=== PATIENT | male | born 1945 | race Two or more races ===

== ENCOUNTER 2019-11-21 15:05 | Inpatient (IN) | payer OTHER ==
[~2019-11-21] VITALS: Ht 182.9 cm; Wt 131.0 kg
[2019-11-21] MEDS ORDERED: SODIUM CHLORIDE 0.9% 500 ML IVB ONE (15:50)
[2019-11-21] MEDS ORDERED: ACETAMINOPHEN 325 MG TAB PO ONE ×2 (16:26→17:00)
[2019-11-21 17:15] LABS: Basophils # (auto) 0 10 ^3/uL (0-0.2); Basophils % (auto) 0.3 % (0.0-2.0); Eosinophils # (auto) 0 10 ^3/uL (0-0.8); Eosinophils % (auto) 0.3 % (0.0-7.0); Hematocrit 39.9 % (41.0-53.0); Hemoglobin 13.1 g/dL (13.5-17.5); Lymphocytes # (auto) 0.7 10 ^3/uL (0.4-5.4); Lymphocytes % (auto) 8.8 % (10.0-50.0); Mean Corpuscular Hemoglobin 29.5 pg (28.0-32.0); Mean Corpuscular Hgb Conc. 32.8 g/dL (32.0-36.0); Mean Corpuscular Volume 89.9 fL (80.0-100.0); Monocytes # (auto) 0.3 10 ^3/uL (0-1.3); Neutrophils # (auto) 7.3 10 ^3/uL (1.6-8.6); Neutrophils % (auto) 86.6 % (37.0-80.0); Platelet Count (auto) 179 10^3/uL (140-450); Red Blood Cells 4.44 10^6/uL (4.5-5.90); Red Cell Distribution Width 13.9 % (11.8-14.3); White Blood Cell 8.4 10^3/uL (4.4-10.8)
[2019-11-21 17:27] LABS: Alanine Aminotransferase 40 U/L (16-61); Albumin 2.6 g/dL (3.4-5.0); Anion Gap 8 (5-15); Aspartate Aminotransferase 55 U/L (15-37); BUN/Creatinine Ratio 14.4; Blood Alcohol < 3.0 mg/dL (0-5); Blood Urea Nitrogen 32 mg/dL (7-18); Calcium 7.9 mg/dL (8.5-10.1); Carbon Dioxide 23 mmol/L (21-32); Chloride 106 mmol/L (98-107); GFR African American 37 mL/min; GFR Non-African American 31 mL/min; Glucose 69 mg/dL (74-106); Magnesium 1.9 mg/dL (1.6-2.6); Potassium 3.9 mmol/L (3.5-5.1); Sodium 137 mmol/L (136-145)
[2019-11-21 17:38] LABS: Alkaline Phosphatase 53 U/L (45-117); Bilirubin, Total 0.4 mg/dL (0.2-1.0); Lactate Dehydrogenase 414 U/L (87-241); Total Protein 6.6 g/dL (6.4-8.2)
[2019-11-21] MEDS ORDERED: AZITHROMYCIN 500MG/ 250ML 250 ML IV ONE (18:30)
[2019-11-21] MEDS ORDERED: MORPHINE SULF INJ 2 MG/ML SYRINGE 1ML IV PRN ×3 (18:30→21:45)
[2019-11-21] MEDS ORDERED: ZINC SULFATE 220mg CAP or TAB PO ONE (18:30)
[2019-11-21] MEDS ORDERED: ASCORBIC ACID 500 MG TAB PO ONE (18:30)
[2019-11-21] MEDS ORDERED: NITROGLYCERIN 0.4 MG SL TAB SL PRN ×2 (18:30→21:45)
[2019-11-21 20:19] LABS: Urine Bacteria NONE SEEN /hpf (None Seen); Urine Blood Negative /uL (Negative); Urine Hyaline Cast FEW /lpf (0 - 2); Urine Specific Gravity 1.027 (1.001-1.035); Urine WBC 1 /hpf (0 - 3)
[2019-11-21] MEDS ORDERED: ACETAMINOPHEN 500 MG TAB PO PRN (21:45)
[2019-11-21] MEDS ORDERED: HYDROcodone-ACET 5/325MG TAB PO PRN (21:45)
[2019-11-21] MEDS ORDERED: LORazepam 0.5 MG TAB PO PRN (21:45)
[2019-11-21] MEDS ORDERED: DOCUSATE SOD 100 MG CAP PO PRN (21:45)
[2019-11-21] MEDS ORDERED: ACETAMINOPHEN 325 MG TAB PO PRN (21:45)
[2019-11-21] MEDS: MONTELUKAST SODIUM 10 MG TAB PO SCH (22:00)
[2019-11-21] MEDS: InsuLIN REG 1unit/0.01ml Soln (100units/ml) SC SCH (22:00)
[2019-11-21] MEDS: DOXYCYCLINE 100MG/250ML 250 ML IV SCH (22:00)
[2019-11-21] MEDS: ACCU-CHEK COMFORT CURVE STRIP VI SCH (22:00)
[2019-11-21] MEDS ORDERED: DEXTROSE (50%) 50ML SYRG IV PRN (22:00)
[2019-11-21] MEDS: ALBUTEROL SULF HFA 90MCG INH 200DOSE IN SCH (22:00)
[2019-11-21] MEDS ORDERED: FAMOTIDINE (10MG/ML) 2ML VL IV ONE (22:00)
[2019-11-21] MEDS: CARVEDILOL 3.125 MG TAB PO SCH (22:57)
[2019-11-21] MEDS: ATORVASTATIN 20 MG TAB PO SCH (22:57)
[2019-11-21] MEDS: HEPARIN SODIUM (PORCINE) 5000 UNITS/ML 1ML VIAL SC SCH (22:58)
[2019-11-22] VITALS (8 sets, daily range): BP systolic 121–139; BP diastolic 49–71
[2019-11-22] MEDS ORDERED: BENZ100C97 PO (04:30)
[2019-11-22] MEDS ORDERED: FAMO20TA10 PO (04:30)
[2019-11-22] MEDS ORDERED: FLUT250M2 IN (04:30)
[2019-11-22] MEDS ORDERED: CEPH500C PO (04:30)
[2019-11-22] MEDS ORDERED: METO25TA5 PO (04:35)
[2019-11-22] MEDS ORDERED: ASPI81CH43 GT (04:45)
[2019-11-22] MEDS ORDERED: AMIO200T33 PO (04:45)
[2019-11-22] MEDS ORDERED: MONT10TA34 PO (04:45)
[2019-11-22] MEDS ORDERED: FURO20TA3 PO (04:45)
[2019-11-22] MEDS ORDERED: HYDR-4833 PO (04:45)
[2019-11-22] MEDS ORDERED: LOSA-69 PO (04:45)
[2019-11-22] MEDS ORDERED: TAM04C PO (04:45)
[2019-11-22] MEDS ORDERED: PANT1INJ3 PO (04:45)
[2019-11-22] MEDS ORDERED: SIMV-13 PO (04:45)
[2019-11-22] MEDS ORDERED: FUROSEMIDE 20 MG/2 ML VIAL IV SCH (06:00)
[2019-11-22] MEDS: HEPARIN SODIUM (PORCINE) 5000 UNITS/ML 1ML VIAL SC SCH ×3 (06:37→22:22)
[2019-11-22] MEDS: ACCU-CHEK COMFORT CURVE STRIP VI SCH ×4 (06:44→22:37)
[2019-11-22] MEDS: InsuLIN REG 1unit/0.01ml Soln (100units/ml) SC SCH ×4 (06:45→22:38)
[2019-11-22] MEDS: ALBUTEROL SULF HFA 90MCG INH 200DOSE IN SCH ×3 (06:54→21:15)
[2019-11-22 09:04] LABS: Basophils # (auto) 0 10 ^3/uL (0-0.2); Basophils % (auto) 0.2 % (0.0-2.0); Eosinophils # (auto) 0 10 ^3/uL (0-0.8); Eosinophils % (auto) 0.1 % (0.0-7.0); Hematocrit 43.8 % (41.0-53.0); Hemoglobin 14.3 g/dL (13.5-17.5); Lymphocytes # (auto) 1.8 10 ^3/uL (0.4-5.4); Lymphocytes % (auto) 15.5 % (10.0-50.0); Mean Corpuscular Hemoglobin 29.9 pg (28.0-32.0); Mean Corpuscular Hgb Conc. 32.7 g/dL (32.0-36.0); Mean Corpuscular Volume 91.6 fL (80.0-100.0); Monocytes # (auto) 0.5 10 ^3/uL (0-1.3); Monocytes % (auto) 4.4 % (0.0-12.0); Neutrophils # (auto) 9.3 10 ^3/uL (1.6-8.6); Neutrophils % (auto) 79.8 % (37.0-80.0); Nucleated Red Blood Cells % 0.1 %; Platelet Count (auto) 224 10^3/uL (140-450); Red Blood Cells 4.78 10^6/uL (4.5-5.90); Red Cell Distribution Width 14.1 % (11.8-14.3); White Blood Cell 11.6 10^3/uL (4.4-10.8)
[2019-11-22 09:26] LABS: INR 1.08 (0.9-1.15); Partial Thromboplastin Time 30.8 sec (23.0-31.2)
[2019-11-22 09:34] LABS: Albumin 2.7 g/dL (3.4-5.0); BUN/Creatinine Ratio 14.3; Bilirubin, Total 0.5 mg/dL (0.2-1.0); Calcium 8.1 mg/dL (8.5-10.1); Magnesium 1.8 mg/dL (1.6-2.6); Phosphorus 3.8 mg/dL (2.5-4.90)
[2019-11-22 10:00] LABS: CRP High Sensitivity 12.9 mg/dL (< 0.3)
[2019-11-22] MEDS ORDERED: FAMOTIDINE (10MG/ML) 2ML VL IV SCH (10:00)
[2019-11-22] MEDS ORDERED: LOSARTAN POTASSIUM 25 MG TAB PO SCH (10:00)
[2019-11-22] MEDS: CARVEDILOL 3.125 MG TAB PO SCH ×2 (10:01→22:21)
[2019-11-22] MEDS: ASPirin 81 mg TAB PO SCH (10:02)
[2019-11-22] MEDS: DOXYCYCLINE 100MG/250ML 250 ML IV SCH ×2 (10:02→22:20)
[2019-11-22] MEDS: DexAMETHasone SOD PHOS 10MG/1ML VIAL INJ IV SCH (10:02)
[2019-11-22] MEDS: AMIODARONE HCL 200 MG TAB PO SCH (10:03)
[2019-11-22] MEDS: ASCORBIC ACID 1,000 MG TAB PO SCH (10:03)
[2019-11-22] MEDS: ZINC SULFATE 220mg CAP or TAB PO SCH (10:03)
[2019-11-22] MEDS: CHOLECALCIFEROL (VITD3) 2,000 UNIT CAP PO SCH (10:04)
[2019-11-22] MEDS ORDERED: ACETAMINOPHEN 650 mg PER 20 mL UD PO ONE (17:30)
[2019-11-22] MEDS ORDERED: methylPREDNISolone SOD SUCC 40 MG/ML VL IV ONE (17:30)
[2019-11-22] MEDS ORDERED: diphenhdrAMINE HCL 50 MG/1 ML VL IV ONE (17:30)
[2019-11-22] MEDS ORDERED: TOCILIZUMAB 400 MG in SODIUM CHL 0.9% 80 ML IV ONE (18:00)
[2019-11-22] MEDS: TAMSULOSIN HYDROCHLORIDE 0.4 MG CAP PO SCH (18:40)
[2019-11-22] MEDS: FUROSEMIDE 40 MG/4 ML VIAL IV SCH (18:40)
[2019-11-22] MEDS ORDERED: REMDESIVIR 200 MG in NS 210ml LOADING DOSE ADULT IV ONE (20:00)
[2019-11-22] MEDS: ATORVASTATIN 20 MG TAB PO SCH (22:21)
[2019-11-22] MEDS: MONTELUKAST SODIUM 10 MG TAB PO SCH (22:21)
[2019-11-23] VITALS (9 sets, daily range): BP systolic 110–145; BP diastolic 55–87
[2019-11-23] MEDS: FUROSEMIDE 40 MG/4 ML VIAL IV SCH (05:42)
[2019-11-23] MEDS: HEPARIN SODIUM (PORCINE) 5000 UNITS/ML 1ML VIAL SC SCH ×3 (05:43→21:37)
[2019-11-23] MEDS: InsuLIN REG 1unit/0.01ml Soln (100units/ml) SC SCH ×4 (06:47→21:37)
[2019-11-23] MEDS: ACCU-CHEK COMFORT CURVE STRIP VI SCH ×4 (06:47→21:24)
[2019-11-23] MEDS: ALBUTEROL SULF HFA 90MCG INH 200DOSE IN SCH ×3 (07:05→21:48)
[2019-11-23] MEDS ORDERED: diphenhdrAMINE HCL 50 MG/1 ML VL IV ONE (08:00)
[2019-11-23] MEDS ORDERED: methylPREDNISolone SOD SUCC 40 MG/ML VL IV ONE (08:00)
[2019-11-23] MEDS ORDERED: ACETAMINOPHEN 650 mg PER 20 mL UD PO ONE (08:00)
[2019-11-23] MEDS ORDERED: TOCILIZUMAB 400 MG in SODIUM CHL 0.9% 80 ML IV ONE (08:30)
[2019-11-23] MEDS: DOXYCYCLINE 100MG/250ML 250 ML IV SCH ×2 (09:41→21:29)
[2019-11-23] MEDS: ZINC SULFATE 220mg CAP or TAB PO SCH (09:41)
[2019-11-23] MEDS: ASPirin 81 mg TAB PO SCH (09:41)
[2019-11-23] MEDS: CHOLECALCIFEROL (VITD3) 2,000 UNIT CAP PO SCH (09:42)
[2019-11-23] MEDS: ASCORBIC ACID 1,000 MG TAB PO SCH (09:42)
[2019-11-23] MEDS: CARVEDILOL 3.125 MG TAB PO SCH ×2 (09:42→21:36)
[2019-11-23] MEDS: AMIODARONE HCL 200 MG TAB PO SCH (09:42)
[2019-11-23] MEDS: DexAMETHasone SOD PHOS 10MG/1ML VIAL INJ IV SCH (09:42)
[2019-11-23] MEDS: REMDESIVIR 100mg in NS 230ml DAILYx4DAYS (NO VENT) IV SCH (17:10)
[2019-11-23] MEDS: TAMSULOSIN HYDROCHLORIDE 0.4 MG CAP PO SCH (17:52)
[2019-11-23] MEDS: MONTELUKAST SODIUM 10 MG TAB PO SCH (21:25)
[2019-11-23] MEDS: ATORVASTATIN 20 MG TAB PO SCH (21:25)
[2019-11-24 05:00] VITALS: BP 150/68
[2019-11-24] MEDS ORDERED: HEPARIN SODIUM (PORCINE) 5000 UNITS/ML 1ML VIAL ONE (05:52)
[2019-11-24] MEDS: HEPARIN SODIUM (PORCINE) 5000 UNITS/ML 1ML VIAL SC SCH (05:57)
[2019-11-24] MEDS: ACCU-CHEK COMFORT CURVE STRIP VI SCH ×4 (05:58→21:05)
[2019-11-24] MEDS: InsuLIN REG 1unit/0.01ml Soln (100units/ml) SC SCH ×4 (05:58→21:06)
[2019-11-24] MEDS: ALBUTEROL SULF HFA 90MCG INH 200DOSE IN SCH ×3 (05:59→22:04)
[2019-11-24 07:32] LABS: Potassium 4.1 mmol/L (3.5-5.1)
[2019-11-24 07:41] LABS: Albumin 2.6 g/dL (3.4-5.0); BUN/Creatinine Ratio 19.4; Bilirubin, Total 0.5 mg/dL (0.2-1.0); Calcium 8.6 mg/dL (8.5-10.1); Total Protein 7.3 g/dL (6.4-8.2)
[2019-11-24 08:59] VITALS: BP 107/60
[2019-11-24] MEDS: DOXYCYCLINE 100MG/250ML 250 ML IV SCH ×2 (09:00→21:04)
[2019-11-24] MEDS: DexAMETHasone SOD PHOS 10MG/1ML VIAL INJ IV SCH (09:00)
[2019-11-24] MEDS: FUROSEMIDE 40 MG/4 ML VIAL IV SCH (09:00)
[2019-11-24] MEDS: AMIODARONE HCL 200 MG TAB PO SCH (09:01)
[2019-11-24] MEDS: ZINC SULFATE 220mg CAP or TAB PO SCH (09:01)
[2019-11-24] MEDS: ASPirin 81 mg TAB PO SCH (09:01)
[2019-11-24] MEDS: ASCORBIC ACID 1,000 MG TAB PO SCH (09:02)
[2019-11-24] MEDS: CHOLECALCIFEROL (VITD3) 2,000 UNIT CAP PO SCH (09:02)
[2019-11-24] MEDS: CARVEDILOL 3.125 MG TAB PO SCH ×2 (09:02→21:04)
[2019-11-24 12:50] VITALS: BP 117/65
[2019-11-24 16:17] VITALS: BP 138/78
[2019-11-24] MEDS: REMDESIVIR 100mg in NS 230ml DAILYx4DAYS (NO VENT) IV SCH (17:05)
[2019-11-24] MEDS: TAMSULOSIN HYDROCHLORIDE 0.4 MG CAP PO SCH (17:17)
[2019-11-24 20:00] VITALS: BP 118/68
[2019-11-24] MEDS ORDERED: guaiFENesin-DM 100/10mg/5ml SYR PO PRN (20:45)
[2019-11-24] MEDS: ATORVASTATIN 20 MG TAB PO SCH (21:05)
[2019-11-24] MEDS: MONTELUKAST SODIUM 10 MG TAB PO SCH (21:05)
[2019-11-24] MEDS: ENOXAPARIN SOD 150 MG/1 ML SYRINGE SC SCH (21:05)
[2019-11-24 22:00] VITALS: BP 118/68
[2019-11-25] VITALS (7 sets, daily range): BP systolic 93–153; BP diastolic 42–68
[2019-11-25] MEDS: ACCU-CHEK COMFORT CURVE STRIP VI SCH ×4 (06:03→22:49)
[2019-11-25] MEDS: InsuLIN REG 1unit/0.01ml Soln (100units/ml) SC SCH ×4 (06:04→22:48)
[2019-11-25 06:24] LABS: Basophils # (auto) 0 10 ^3/uL (0-0.2); Basophils % (auto) 0.1 % (0.0-2.0); Eosinophils # (auto) 0 10 ^3/uL (0-0.8); Hematocrit 42.4 % (41.0-53.0); Lymphocytes # (auto) 0.7 10 ^3/uL (0.4-5.4); Lymphocytes % (auto) 6.1 % (10.0-50.0); Mean Corpuscular Hemoglobin 29.3 pg (28.0-32.0); Mean Corpuscular Hgb Conc. 32.9 g/dL (32.0-36.0); Mean Corpuscular Volume 88.8 fL (80.0-100.0); Monocytes # (auto) 0.6 10 ^3/uL (0-1.3); Monocytes % (auto) 5.5 % (0.0-12.0); Neutrophils % (auto) 88.3 % (37.0-80.0); Nucleated Red Blood Cells % 0.1 %; Platelet Count (auto) 279 10^3/uL (140-450); Red Blood Cells 4.77 10^6/uL (4.5-5.90); White Blood Cell 11.4 10^3/uL (4.4-10.8)
[2019-11-25] MEDS: ALBUTEROL SULF HFA 90MCG INH 200DOSE IN SCH ×3 (06:25→21:58)
[2019-11-25 06:42] LABS: Albumin 2.5 g/dL (3.4-5.0); BUN/Creatinine Ratio 23.5; Bilirubin, Total 0.6 mg/dL (0.2-1.0); Calcium 8.1 mg/dL (8.5-10.1); Total Protein 6.6 g/dL (6.4-8.2)
[2019-11-25] MEDS: DexAMETHasone SOD PHOS 10MG/1ML VIAL INJ IV SCH (09:39)
[2019-11-25] MEDS: FUROSEMIDE 40 MG/4 ML VIAL IV SCH (09:41)
[2019-11-25] MEDS: ASPirin 81 mg TAB PO SCH (09:42)
[2019-11-25] MEDS: ZINC SULFATE 220mg CAP or TAB PO SCH (09:42)
[2019-11-25] MEDS: DOXYCYCLINE 100MG/250ML 250 ML IV SCH ×2 (09:42→22:46)
[2019-11-25] MEDS: AMIODARONE HCL 200 MG TAB PO SCH (09:43)
[2019-11-25] MEDS: CARVEDILOL 3.125 MG TAB PO SCH ×2 (09:43→22:46)
[2019-11-25] MEDS: ASCORBIC ACID 1,000 MG TAB PO SCH (09:44)
[2019-11-25] MEDS: CHOLECALCIFEROL (VITD3) 2,000 UNIT CAP PO SCH (09:44)
[2019-11-25] MEDS: ENOXAPARIN SOD 150 MG/1 ML SYRINGE SC SCH ×2 (09:44→22:49)
[2019-11-25] MEDS ORDERED: INSULIN LANTUS (GLARGINE) 1 /0.01ml (100units/ml) SC ONE (13:30)
[2019-11-25] MEDS: REMDESIVIR 100mg in NS 230ml DAILYx4DAYS (NO VENT) IV SCH (16:45)
[2019-11-25] MEDS: TAMSULOSIN HYDROCHLORIDE 0.4 MG CAP PO SCH (16:53)
[2019-11-25] MEDS: ATORVASTATIN 20 MG TAB PO SCH (22:46)
[2019-11-25] MEDS: MONTELUKAST SODIUM 10 MG TAB PO SCH (22:47)
[2019-11-25] MEDS: INSULIN LANTUS (GLARGINE) 1 /0.01ml (100units/ml) SC SCH (22:49)
[2019-11-26 05:32] VITALS: BP 123/72
[2019-11-26] MEDS: ALBUTEROL SULF HFA 90MCG INH 200DOSE IN SCH ×3 (06:03→21:14)
[2019-11-26] MEDS: ACCU-CHEK COMFORT CURVE STRIP VI SCH ×4 (06:15→23:01)
[2019-11-26] MEDS: INSULIN LANTUS (GLARGINE) 1 /0.01ml (100units/ml) SC SCH ×2 (06:20→23:23)
[2019-11-26] MEDS: InsuLIN REG 1unit/0.01ml Soln (100units/ml) SC SCH ×4 (06:21→23:20)
[2019-11-26 08:59] VITALS: BP 134/74
[2019-11-26] MEDS: DexAMETHasone SOD PHOS 10MG/1ML VIAL INJ IV SCH (09:40)
[2019-11-26] MEDS: ASPirin 81 mg TAB PO SCH (09:41)
[2019-11-26] MEDS: DOXYCYCLINE 100MG/250ML 250 ML IV SCH (09:41)
[2019-11-26] MEDS: ZINC SULFATE 220mg CAP or TAB PO SCH (09:41)
[2019-11-26] MEDS: AMIODARONE HCL 200 MG TAB PO SCH (09:41)
[2019-11-26] MEDS: FUROSEMIDE 40 MG/4 ML VIAL IV SCH (09:41)
[2019-11-26] MEDS: CHOLECALCIFEROL (VITD3) 2,000 UNIT CAP PO SCH (09:43)
[2019-11-26] MEDS: ASCORBIC ACID 1,000 MG TAB PO SCH (09:43)
[2019-11-26] MEDS: ENOXAPARIN SOD 150 MG/1 ML SYRINGE SC SCH ×2 (09:44→23:01)
[2019-11-26] MEDS: CARVEDILOL 3.125 MG TAB PO SCH ×2 (10:00→23:01)
[2019-11-26 12:30] VITALS: BP 123/72
[2019-11-26 13:20] VITALS: BP 149/75
[2019-11-26 17:00] VITALS: BP_SYST 107; BP_SYST 134; BP_DIAS 61; BP_DIAS 69
[2019-11-26] MEDS: TAMSULOSIN HYDROCHLORIDE 0.4 MG CAP PO SCH (18:04)
[2019-11-26] MEDS: REMDESIVIR 100mg in NS 230ml DAILYx4DAYS (NO VENT) IV SCH (18:05)
[2019-11-26 22:00] VITALS: BP 140/76
[2019-11-26] MEDS: MONTELUKAST SODIUM 10 MG TAB PO SCH (23:01)
[2019-11-26] MEDS: ATORVASTATIN 20 MG TAB PO SCH (23:01)
[2019-11-27] VITALS (7 sets, daily range): BP systolic 124–142; BP diastolic 63–83
[2019-11-27] MEDS: ALBUTEROL SULF HFA 90MCG INH 200DOSE IN SCH ×3 (06:02→22:13)
[2019-11-27] MEDS: ACCU-CHEK COMFORT CURVE STRIP VI SCH ×4 (06:36→22:09)
[2019-11-27 06:45] LABS: Basophils # (auto) 0 10 ^3/uL (0-0.2); Basophils % (auto) 0.2 % (0.0-2.0); Eosinophils # (auto) 0 10 ^3/uL (0-0.8); Eosinophils % (auto) 0.1 % (0.0-7.0); Hematocrit 48.7 % (41.0-53.0); Hemoglobin 15.7 g/dL (13.5-17.5); Lymphocytes # (auto) 0.8 10 ^3/uL (0.4-5.4); Mean Corpuscular Hemoglobin 28.7 pg (28.0-32.0); Mean Corpuscular Hgb Conc. 32.3 g/dL (32.0-36.0); Mean Corpuscular Volume 89.1 fL (80.0-100.0); Monocytes # (auto) 0.7 10 ^3/uL (0-1.3); Monocytes % (auto) 4.2 % (0.0-12.0); Neutrophils % (auto) 90.5 % (37.0-80.0); Nucleated Red Blood Cells % 0.1 %; Platelet Count (auto) 346 10^3/uL (140-450); Red Blood Cells 5.46 10^6/uL (4.5-5.90); Red Cell Distribution Width 14.2 % (11.8-14.3); White Blood Cell 16.5 10^3/uL (4.4-10.8)
[2019-11-27] MEDS: InsuLIN REG 1unit/0.01ml Soln (100units/ml) SC SCH ×4 (06:58→22:11)
[2019-11-27] MEDS: INSULIN LANTUS (GLARGINE) 1 /0.01ml (100units/ml) SC SCH ×2 (07:01→22:10)
[2019-11-27 07:26] LABS: BUN/Creatinine Ratio 23.4
[2019-11-27] MEDS: DexAMETHasone SOD PHOS 10MG/1ML VIAL INJ IV SCH (09:07)
[2019-11-27] MEDS: ASPirin 81 mg TAB PO SCH (09:08)
[2019-11-27] MEDS: ZINC SULFATE 220mg CAP or TAB PO SCH (09:08)
[2019-11-27] MEDS: AMIODARONE HCL 200 MG TAB PO SCH (09:09)
[2019-11-27] MEDS: FUROSEMIDE 40 MG/4 ML VIAL IV SCH (09:10)
[2019-11-27] MEDS: CARVEDILOL 3.125 MG TAB PO SCH ×2 (09:10→22:08)
[2019-11-27] MEDS: ENOXAPARIN SOD 150 MG/1 ML SYRINGE SC SCH ×2 (09:11→22:08)
[2019-11-27] MEDS: CHOLECALCIFEROL (VITD3) 2,000 UNIT CAP PO SCH (09:11)
[2019-11-27] MEDS: ASCORBIC ACID 1,000 MG TAB PO SCH (09:11)
[2019-11-27] MEDS: guaiFENesin-DM 100/10mg/5ml SYR PO PRN ×2 (09:18→20:42)
[2019-11-27] MEDS: TAMSULOSIN HYDROCHLORIDE 0.4 MG CAP PO SCH (18:40)
[2019-11-27] MEDS: MONTELUKAST SODIUM 10 MG TAB PO SCH (22:08)
[2019-11-27] MEDS: ATORVASTATIN 20 MG TAB PO SCH (22:08)
[2019-11-28] MEDS: ALUM & MAG HYDROX-SIMETH LIQ(MAALOX) 30 ML PO PRN (04:16)
[2019-11-28 05:00] VITALS: BP 147/81
[2019-11-28] MEDS: ALBUTEROL SULF HFA 90MCG INH 200DOSE IN SCH ×3 (06:24→22:00)
[2019-11-28] MEDS: ACCU-CHEK COMFORT CURVE STRIP VI SCH ×4 (06:32→22:20)
[2019-11-28] MEDS: INSULIN LANTUS (GLARGINE) 1 /0.01ml (100units/ml) SC SCH ×2 (06:35→22:21)
[2019-11-28] MEDS: InsuLIN REG 1unit/0.01ml Soln (100units/ml) SC SCH ×4 (06:39→22:25)
[2019-11-28 09:00] VITALS: BP 137/82
[2019-11-28] MEDS: AMIODARONE HCL 200 MG TAB PO SCH (09:30)
[2019-11-28] MEDS: FUROSEMIDE 40 MG/4 ML VIAL IV SCH ×2 (09:30→10:00)
[2019-11-28] MEDS: ZINC SULFATE 220mg CAP or TAB PO SCH (09:30)
[2019-11-28] MEDS: DexAMETHasone SOD PHOS 10MG/1ML VIAL INJ IV SCH ×2 (09:30→10:00)
[2019-11-28] MEDS: ASPirin 81 mg TAB PO SCH (09:30)
[2019-11-28] MEDS: ASCORBIC ACID 1,000 MG TAB PO SCH (09:31)
[2019-11-28] MEDS: CARVEDILOL 3.125 MG TAB PO SCH ×2 (09:31→21:58)
[2019-11-28] MEDS: CHOLECALCIFEROL (VITD3) 2,000 UNIT CAP PO SCH (09:31)
[2019-11-28] MEDS: ENOXAPARIN SOD 150 MG/1 ML SYRINGE SC SCH ×2 (09:31→21:58)
[2019-11-28] MEDS ORDERED: DexAMETHasone 4 MG TAB PO ONE (11:45)
[2019-11-28 13:00] VITALS: BP 129/81
[2019-11-28 17:00] VITALS: BP 157/84
[2019-11-28] MEDS: TAMSULOSIN HYDROCHLORIDE 0.4 MG CAP PO SCH (18:03)
[2019-11-28] MEDS: ATORVASTATIN 20 MG TAB PO SCH (21:57)
[2019-11-28] MEDS: MONTELUKAST SODIUM 10 MG TAB PO SCH (21:58)
[2019-11-28 22:19] VITALS: BP 144/74
[2019-11-29] VITALS (7 sets, daily range): BP systolic 105–121; BP diastolic 68–72
[2019-11-29] MEDS: guaiFENesin-DM 100/10mg/5ml SYR PO PRN ×2 (01:40→09:26)
[2019-11-29] MEDS: ALBUTEROL SULF HFA 90MCG INH 200DOSE IN SCH ×3 (06:05→22:23)
[2019-11-29] MEDS: ACCU-CHEK COMFORT CURVE STRIP VI SCH ×4 (06:32→21:27)
[2019-11-29] MEDS: INSULIN LANTUS (GLARGINE) 1 /0.01ml (100units/ml) SC SCH ×2 (06:32→21:27)
[2019-11-29] MEDS: InsuLIN REG 1unit/0.01ml Soln (100units/ml) SC SCH ×4 (06:33→21:27)
[2019-11-29] MEDS: ALUM & MAG HYDROX-SIMETH LIQ(MAALOX) 30 ML PO PRN (06:39)
[2019-11-29 07:18] LABS: Basophils # (auto) 0.1 10 ^3/uL (0-0.2); Basophils % (auto) 0.6 % (0.0-2.0); Eosinophils # (auto) 0 10 ^3/uL (0-0.8); Eosinophils % (auto) 0.1 % (0.0-7.0); Hematocrit 43.5 % (41.0-53.0); Hemoglobin 14.2 g/dL (13.5-17.5); Lymphocytes % (auto) 4.4 % (10.0-50.0); Mean Corpuscular Hemoglobin 29.2 pg (28.0-32.0); Mean Corpuscular Hgb Conc. 32.7 g/dL (32.0-36.0); Mean Corpuscular Volume 89.1 fL (80.0-100.0); Monocytes # (auto) 0.8 10 ^3/uL (0-1.3); Monocytes % (auto) 3.7 % (0.0-12.0); Neutrophils # (auto) 20.6 10 ^3/uL (1.6-8.6); Neutrophils % (auto) 91.2 % (37.0-80.0); Nucleated Red Blood Cells % 0.1 %; Platelet Count (auto) 299 10^3/uL (140-450); Red Blood Cells 4.88 10^6/uL (4.5-5.90); Red Cell Distribution Width 13.9 % (11.8-14.3); White Blood Cell 22.6 10^3/uL (4.4-10.8)
[2019-11-29 07:32] LABS: Albumin 2.8 g/dL (3.4-5.0); Calcium 8.7 mg/dL (8.5-10.1); Potassium 3.8 mmol/L (3.5-5.1)
[2019-11-29 07:36] LABS: BUN/Creatinine Ratio 27.6; Total Protein 6.3 g/dL (6.4-8.2)
[2019-11-29] MEDS: ONDANSETRON HCL 4 MG/2 ML VIAL IV PRN (07:54)
[2019-11-29] MEDS: FUROSEMIDE 40 MG/4 ML VIAL IV SCH (09:14)
[2019-11-29] MEDS: AMIODARONE HCL 200 MG TAB PO SCH (09:14)
[2019-11-29] MEDS: ZINC SULFATE 220mg CAP or TAB PO SCH (09:15)
[2019-11-29] MEDS: ASPirin 81 mg TAB PO SCH (09:15)
[2019-11-29] MEDS: ASCORBIC ACID 1,000 MG TAB PO SCH (09:15)
[2019-11-29] MEDS: CHOLECALCIFEROL (VITD3) 2,000 UNIT CAP PO SCH (09:15)
[2019-11-29] MEDS: CARVEDILOL 3.125 MG TAB PO SCH ×2 (09:15→21:26)
[2019-11-29] MEDS: ENOXAPARIN SOD 150 MG/1 ML SYRINGE SC SCH (09:16)
[2019-11-29] MEDS ORDERED: DexAMETHasone 4 MG TAB PO SCH (10:00)
[2019-11-29] MEDS ORDERED: levoFLOXacin 750MG 150 ML IV SCH (15:15)
[2019-11-29] MEDS: TAMSULOSIN HYDROCHLORIDE 0.4 MG CAP PO SCH (18:10)
[2019-11-29] MEDS: APIXABAN 5 MG TAB PO SCH (21:26)
[2019-11-29] MEDS: ATORVASTATIN 20 MG TAB PO SCH (21:27)
[2019-11-29] MEDS: MONTELUKAST SODIUM 10 MG TAB PO SCH (21:27)
[2019-11-30] VITALS (7 sets, daily range): BP systolic 94–119; BP diastolic 55–73
[2019-11-30] MEDS: guaiFENesin-DM 100/10mg/5ml SYR PO PRN (02:29)
[2019-11-30] MEDS: INSULIN LANTUS (GLARGINE) 1 /0.01ml (100units/ml) SC SCH ×2 (06:39→21:49)
[2019-11-30] MEDS: ACCU-CHEK COMFORT CURVE STRIP VI SCH ×4 (06:39→21:48)
[2019-11-30] MEDS: InsuLIN REG 1unit/0.01ml Soln (100units/ml) SC SCH ×4 (06:40→21:49)
[2019-11-30] MEDS: ALBUTEROL SULF HFA 90MCG INH 200DOSE IN SCH ×3 (06:47→22:09)
[2019-11-30 07:52] LABS: Hematocrit 37.4 % (41.0-53.0); Mean Corpuscular Hemoglobin 28.8 pg (28.0-32.0); Mean Corpuscular Volume 89.8 fL (80.0-100.0); Platelet Count (auto) 293 10^3/uL (140-450); Red Blood Cells 4.16 10^6/uL (4.5-5.90); White Blood Cell 26.8 10^3/uL (4.4-10.8)
[2019-11-30 08:05] LABS: Basophils % (manual) 0 (0.0-2.0); Blast Cells 0; Eosinophils % (manual) 0 (0-7); Metamyelocytes % 0; Myelocytes % 0; Promyelocytes % 0; Reactive Lymphocytes 0
[2019-11-30 08:11] LABS: Albumin 2.5 g/dL (3.4-5.0); Calcium 8.4 mg/dL (8.5-10.1); Potassium 4.5 mmol/L (3.5-5.1)
[2019-11-30 08:14] LABS: BUN/Creatinine Ratio 25.6; Bilirubin, Total 0.9 mg/dL (0.2-1.0); Total Protein 5.5 g/dL (6.4-8.2)
[2019-11-30] MEDS: ONDANSETRON HCL 4 MG/2 ML VIAL IV PRN (09:15)
[2019-11-30 09:44] LABS: Band Neutrophils % (manual) 2; Lymphocytes % (manual) 6 (10.0-50.0); Monocytes % (manual) 3 (0-12)
[2019-11-30] MEDS ORDERED: LORazepam 2MG/ML-1ML VIAL IV PRN (11:30)
[2019-11-30] MEDS: CHOLECALCIFEROL (VITD3) 2,000 UNIT CAP PO SCH (12:02)
[2019-11-30] MEDS: APIXABAN 5 MG TAB PO SCH ×2 (12:03→21:47)
[2019-11-30] MEDS: ASPirin 81 mg TAB PO SCH (12:04)
[2019-11-30] MEDS: ASCORBIC ACID 1,000 MG TAB PO SCH (12:04)
[2019-11-30] MEDS: AMIODARONE HCL 200 MG TAB PO SCH (12:04)
[2019-11-30] MEDS: CARVEDILOL 3.125 MG TAB PO SCH ×2 (12:05→21:48)
[2019-11-30] MEDS: TAMSULOSIN HYDROCHLORIDE 0.4 MG CAP PO SCH (19:00)
[2019-11-30] MEDS ORDERED: SODIUM CHLORIDE 0.9% 1,000 ML IV SCH (19:00)
[2019-11-30] MEDS: MONTELUKAST SODIUM 10 MG TAB PO SCH (21:47)
[2019-11-30] MEDS: ATORVASTATIN 20 MG TAB PO SCH (21:47)
[2019-12-01] VITALS (21 sets, daily range): BP systolic 40–91; BP diastolic 13–58
[2019-12-01] MEDS ORDERED: SUCCINYLCHOLINE CHLORIDE 20 MG/ML 10ML VIAL IV ONE ×3 (01:03→02:30)
[2019-12-01] MEDS ORDERED: ETOMIDATE (2MG/ML) 20ML VIAL IV ONE ×3 (01:03→02:30)
[2019-12-01] MEDS ORDERED: NOREPINEPHRINE 8 MG/250ML KIT 250 ML IV ONE ×2 (01:13→04:08)
[2019-12-01] MEDS ORDERED: MIDAZOLAM DRIP 50 mg/50mL 50 ML IV ONE (01:14)
[2019-12-01] MEDS ORDERED: EPINEPHrine HCL 250 ML IV ONE ×2 (01:55→04:11)
[2019-12-01] MEDS ORDERED: SODIUM BICARBONATE 8.4% INJ 50ML SYRINGE ONE ×3 (02:42→03:08)
[2019-12-01] MEDS ORDERED: SODIUM BICARBONATE 8.4 % INJ 50ML VIAL IV ONE (02:45)
[2019-12-01] MEDS ORDERED: SODIUM BICARBONATE 50ML VIAL 50 ML in SOD CHL 0.45% 1,000 ML IV SCH (02:45)
[2019-12-01] MEDS ORDERED: VASOPRESSIN 50 UNITS in D5W 5% 247.5 ML IV SCH ×3 (03:00→14:00)
[2019-12-01 03:03] LABS: BUN/Creatinine Ratio 21.8; Calcium 8.7 mg/dL (8.5-10.1); Potassium 5.1 mmol/L (3.5-5.1)
[2019-12-01] MEDS ORDERED: VASOPRESSIN 20 UNIT/ML ONE (03:09)
[2019-12-01] MEDS ORDERED: VANCOMYCIN 1GM/250ML 250 ML IV ONE (03:15)
[2019-12-01] MEDS: PIPERACILLIN-TAZOB 2.25GM 50 ML IV SCH ×2 (03:15→06:15)
[2019-12-01] MEDS ORDERED: VANCOMYCIN PER PHARMACY 0 MG IV SCH (03:15)
[2019-12-01 03:24] LABS: Albumin 1.8 g/dL (3.4-5.0)
[2019-12-01 03:36] LABS: Bilirubin, Total 0.6 mg/dL (0.2-1.0)
[2019-12-01 04:03] LABS: Hematocrit 26.3 % (41.0-53.0); Mean Corpuscular Hemoglobin 28.7 pg (28.0-32.0); Mean Corpuscular Hgb Conc. 30.6 g/dL (32.0-36.0); Mean Corpuscular Volume 93.9 fL (80.0-100.0); Platelet Count (auto) 222 10^3/uL (140-450); Red Cell Distribution Width 14.3 % (11.8-14.3); White Blood Cell 29.3 10^3/uL (4.4-10.8)
[2019-12-01 04:05] LABS: Basophils % (manual) 0 (0.0-2.0); Blast Cells 0; Eosinophils % (manual) 0 (0-7); Metamyelocytes % 0; Myelocytes % 0; Promyelocytes % 0; Reactive Lymphocytes 0
[2019-12-01] MEDS ORDERED: NOREPINEPHRINE 8 MG/250ML KIT 250 ML IV SCH (04:16)
[2019-12-01] MEDS ORDERED: PHENYLEPHRINE IV 250 ML IV SCH (04:16)
[2019-12-01] MEDS ORDERED: EPINEPHrine HCL 250 ML IV SCH (04:16)
[2019-12-01] MEDS ORDERED: PHENYLEPHRINE IV 250 ML IV ONE (04:19)
[2019-12-01] MEDS ORDERED: SODIUM ZIRCONIUM CYCL 10 GM PAK PO ONE ×2 (04:30→10:30)
[2019-12-01] MEDS ORDERED: ALBUMIN 5% 250 ML IV ONE (04:30)
[2019-12-01 05:48] LABS: Band Neutrophils % (manual) 8; Lymphocytes % (manual) 13 (10.0-50.0); Monocytes % (manual) 3 (0-12)
[2019-12-01] MEDS: ALBUTEROL SULF 2.5 MG/0.5ML(0.5%) NEB SOLN NEB SCH ×2 (06:12→11:24)
[2019-12-01] MEDS: ACCU-CHEK COMFORT CURVE STRIP VI SCH ×2 (06:14→11:11)
[2019-12-01] MEDS: INSULIN LANTUS (GLARGINE) 1 /0.01ml (100units/ml) SC SCH (06:16)
[2019-12-01] MEDS: InsuLIN REG 1unit/0.01ml Soln (100units/ml) SC SCH (06:17)
[2019-12-01] MEDS ORDERED: PANTOPRAZOLE 40mg/50ML NS AE 50 ML IV SCH (07:00)
[2019-12-01 07:26] LABS: Hematocrit 23.9 % (41.0-53.0); Hemoglobin 7.6 g/dL (13.5-17.5)
[2019-12-01] MEDS ORDERED: NOREPINEPHRINE BITARTRATE 16 MG in SODIUM CHL 0.9% 250 ML IV SCH (07:34)
[2019-12-01] MEDS ORDERED: EPINEPHrine HCL INJECTION 8 MG in D5W 5% 250 ML IV SCH (07:34)
[2019-12-01] MEDS ORDERED: PHENYLEPHRINE INJ 40 MG in SODIUM CHL 0.9% 250 ML IV SCH (07:34)
[2019-12-01] MEDS ORDERED: CALCIUM CHLOR(10%) 100MG/ML 10ML SYRINGE IV ONE (08:10)
[2019-12-01] MEDS ORDERED: SODIUM BICARBONATE 8.4% INJ 50ML SYRINGE IV ONE ×2 (08:10→10:30)
[2019-12-01] MEDS ORDERED: EPINEPHrine HCL 1 MG/10 ML SYRG IV ONE (08:10)
[2019-12-01 09:35] LABS: Hematocrit 23.9 % (41.0-53.0); Hemoglobin 7.5 g/dL (13.5-17.5); Mean Corpuscular Hemoglobin 28.7 pg (28.0-32.0); Mean Corpuscular Hgb Conc. 31.3 g/dL (32.0-36.0); Mean Corpuscular Volume 91.8 fL (80.0-100.0); Platelet Count (auto) 173 10^3/uL (140-450); Red Blood Cells 2.61 10^6/uL (4.5-5.90)
[2019-12-01 09:44] LABS: White Blood Cell 44.8 10^3/uL (4.4-10.8)
[2019-12-01 09:46] LABS: Basophils % (manual) 0 (0.0-2.0); Blast Cells 0; Eosinophils % (manual) 0 (0-7); Myelocytes % 0; Promyelocytes % 0; Reactive Lymphocytes 0
[2019-12-01 09:58] LABS: Albumin 1.8 g/dL (3.4-5.0); BUN/Creatinine Ratio 18.1
[2019-12-01] MEDS ORDERED: LINEZOLID 600MG/300ML 300 ML IV SCH (10:00)
[2019-12-01] MEDS ORDERED: MEROPENEM 500MG IVPB 50 ML IV SCH (10:00)
[2019-12-01 10:06] LABS: Bilirubin, Total 0.9 mg/dL (0.2-1.0); Total Protein 3.8 g/dL (6.4-8.2)
[2019-12-01 10:09] LABS: Potassium 5.7 mmol/L (3.5-5.1)
[2019-12-01 10:18] LABS: Band Neutrophils % (manual) 8; Lymphocytes % (manual) 2 (10.0-50.0); Metamyelocytes % 2; Monocytes % (manual) 3 (0-12)
[2019-12-01] MEDS ORDERED: BUMETANIDE 2.5mg/10ml (0.25 mg/ml) INJ IV ONE (10:30)
[2019-12-01] MEDS ORDERED: SODIUM BICARBONATE 50ML VIAL 150 ML in D5W 5% 1,000 ML IV SCH (10:30)
[2019-12-01] MEDS ORDERED: ALBUTEROL SULF 2.5 MG/0.5ML(0.5%) NEB SOLN NEB ONE (10:30)
[2019-12-01] MEDS ORDERED: CALCIUM GLUC 4.65meq/50ml D5AE 50 ML IV ONE (10:30)
[2019-12-01 10:47] LABS: INR 2.16 (0.9-1.15); Partial Thromboplastin Time 47.8 sec (23.0-31.2)
[2019-12-01] MEDS: CHOLECALCIFEROL (VITD3) 2,000 UNIT CAP PO SCH (11:06)
[2019-12-01] MEDS: ASCORBIC ACID 1,000 MG TAB PO SCH (11:06)
[2019-12-01] MEDS ORDERED: VASOPRESSIN IV SCH (14:00)
[2019-12-01] MEDS ORDERED: D5W 5% IV SCH (14:00)
[2019-12-01] MEDS ORDERED: SODIUM ZIRCONIUM CYCL 10 GM PAK PO SCH (14:00)
[2019-12-06] MEDS ORDERED: APIXABAN 5 MG TAB PO SCH (22:00)
== END 2019-12-01 16:00 | disposition expired | DRG 871 ==
LOC: EDBD 15:05 → ER 15:05 → TELE 15:06 → TELE-EAST 11-22 04:25 → DOU IN ICU 12-01 04:31
PROVIDERS: ADMIT Hospitalist; ATTEND Internal Medicine
PROC: 30233K1 Transfusion of Nonautologous Frozen Plasma into Peripheral Vein, Percutaneous Approach (ICD-10-PCS; 2019-11-22)
PROC: XW13325 Transfusion of Convalescent Plasma (Nonautologous) into Peripheral Vein, Percutaneous Approach, New Technology Group 5 (ICD-10-PCS; 2019-11-22)
PROC: XW033E5 Introduction of Remdesivir Anti-infective into Peripheral Vein, Percutaneous Approach, New Technology Group 5 (ICD-10-PCS; 2019-11-22)
PROC: XW033H5 Introduction of Tocilizumab into Peripheral Vein, Percutaneous Approach, New Technology Group 5 (ICD-10-PCS; 2019-11-23)
PROC: 5A1935Z Respiratory Ventilation, Less than 24 Consecutive Hours (ICD-10-PCS; principal; 2019-12-01)
PROC: 0BH17EZ Insertion of Endotracheal Airway into Trachea, Via Natural or Artificial Opening (ICD-10-PCS; 2019-12-01)
PROC: 5A12012 Performance of Cardiac Output, Single, Manual (ICD-10-PCS; 2019-12-01)
DX: A41.89 Other specified sepsis (principal); U07.1 COVID-19; J12.89 Other viral pneumonia; G93.41 Metabolic encephalopathy; J96.01 Acute respiratory failure with hypoxia; N17.0 Acute kidney failure with tubular necrosis; E43 Unspecified severe protein-calorie malnutrition; R65.21 Severe sepsis with septic shock; J15.6 Pneumonia due to other Gram-negative bacteria; J15.29 Pneumonia due to other staphylococcus; I50.23 Acute on chronic systolic (congestive) heart failure; L02.91 Cutaneous abscess, unspecified; E87.1 Hypo-osmolality and hyponatremia; E87.2 Acidosis; I13.0 Hypertensive heart and chronic kidney disease with heart failure and stage 1 through stage 4 chronic kidney disease, or unspecified chronic kidney disease; K92.2 Gastrointestinal hemorrhage, unspecified; I95.9 Hypotension, unspecified; I25.5 Ischemic cardiomyopathy; K21.9 Gastro-esophageal reflux disease without esophagitis; S81.011A Laceration without foreign body, right knee, initial encounter; N40.0 Benign prostatic hyperplasia without lower urinary tract symptoms; E66.01 Morbid (severe) obesity due to excess calories; R19.7 Diarrhea, unspecified; E11.22 Type 2 diabetes mellitus with diabetic chronic kidney disease; E11.65 Type 2 diabetes mellitus with hyperglycemia; E78.5 Hyperlipidemia, unspecified; E87.5 Hyperkalemia; F17.200 Nicotine dependence, unspecified, uncomplicated; H91.90 Unspecified hearing loss, unspecified ear; N18.3 Chronic kidney disease, stage 3 (moderate); I46.9 Cardiac arrest, cause unspecified; I49.5 Sick sinus syndrome; R56.9 Unspecified convulsions; T38.0X5A Adverse effect of glucocorticoids and synthetic analogues, initial encounter; Z66 Do not resuscitate; Z83.3 Family history of diabetes mellitus; Z95.0 Presence of cardiac pacemaker; Z68.39 Body mass index [BMI] 39.0-39.9, adult; W18.30XA Fall on same level, unspecified, initial encounter; Y93.9 Activity, unspecified; Y92.89 Other specified places as the place of occurrence of the external cause; Y99.8 Other external cause status; E11.21 Type 2 diabetes mellitus with diabetic nephropathy; Z79.4 Long term (current) use of insulin
CPT/HCPCS: 36415; 36600; 70450; 71045; 80048; 80053; 80061; 80320; 81001; 82728; 82805; 82962; 83036; 83605; 83615; 83735; 83880; 84100; 84439; 84443; 84484; 85007; 85014; 85018; 85025; 85027; 85379; 85610; 85730; 86141; 86850; 86900; 86901; 86920; 87040; 87070; 87077; 87081; 87186; 87205; 87493; 92950; 93005; 93886; 94002; 94003; 94640; 96361; 96365; 97530; G0378; J0171; J0330; J0610; J1100; J1815; J1956; J2185; J2250; J2405; J2543; J3490; J7060